=== PATIENT | female | born 1970 | race Caucasian/White ===

== ENCOUNTER → 2017-08-19 | Outpatient (CLI) | payer MEDICAID ==
[~2017-08-19] MED LIST: ALPRAZOLAM; AMOXICILLIN 50500 MG PO; CEFTIN250 M1 PO; CEFTIN500 MG PO; CEPHALEXIN500 M1 PO; CIPRO; CIPRO 500MG TA500 MG PO; FLUOXETINE; IBUPROFEN; KEFLEX500 MG PO; LORTAB 5/500 501 TAB PO; MACROBID100 MG PO; METRONIDAZOLE500 MG PO; MVI; NAPROSYN500 MG PO; NITROFURANTOIN; NO HOME MEDICATIONS; NORCO 325 MG-51 TAB PO; PERCOCET; PERCOCET 325 MG1 TA2 PO; PRENATAL VITAMI1 TA5 PO
[2017-08-19 13:03] LABS: HEMOGLOBIN 10.9 g/dl (12.5-16.0)
[2017-08-19 13:05] LABS: HEMATOCRIT 35.2 % (37.0-47.0)
== END ==
LOC: COL.LAB 12:05
PROVIDERS: Orthopaedic Surgery
DX: Z01.812 Encounter for preprocedural laboratory examination (principal); D64.9 Anemia, unspecified; M75.102 Unspecified rotator cuff tear or rupture of left shoulder, not specified as traumatic

== ENCOUNTER → 2017-10-06 | Outpatient (CLI) | payer MEDICAID | LOC: ZCOL.LAB 16:27 | DX: M25.511 Pain in right shoulder (principal) ==

== ENCOUNTER → 2017-10-08 | Outpatient (REF) | LOC: ZLAB.WCH 16:12 | DX: Z01.89 Encounter for other specified special examinations (principal) ==

== ENCOUNTER → 2017-10-11 | Outpatient (REF) | LOC: ZLAB.WCH 18:09 | DX: Z01.89 Encounter for other specified special examinations (principal) ==

== ENCOUNTER → 2017-11-12 | Outpatient (CLI) | payer MEDICAID | LOC: ZCOL.LAB 13:59 | DX: S46.191D Other injury of muscle, fascia and tendon of long head of biceps, right arm, subsequent encounter (principal) ==

== ENCOUNTER 2017-11-19 10:51 | Outpatient (RCR) | payer MEDICAID ==
[~2017-11-19] VITALS: Ht 165.1 cm; Wt 63.0 kg
[~2017-11-19 10:51] MED LIST changes: -ABILIFY5 MG PO; -MACROBID 1100 MG/CAP PO; -METROCREAM CREA45 GM TP; -MONODOX100 PO; -ROXICODONE 55 MG/TAB PO; -TINDAMAX 500MG500 M1 PO; -WELLBUTRIN XL300 M1 PO; -ZOLOFT 25MG25 MG PO
[2017-11-19] MEDS ORDERED: ABILIFY5 MG PO (11:23)
[2017-11-19] MEDS ORDERED: WELLBUTRIN XL300 M1 PO (11:23)
[2017-11-19] MEDS ORDERED: ZOLOFT 25MG25 MG PO (11:25)
[2017-11-19] MEDS ORDERED: MACROBID 1100 MG/CAP PO (11:25)
[2017-11-19] MEDS ORDERED: TINDAMAX 500MG500 M1 PO (11:40)
[2017-11-19 11:59] VITALS: BP 112/73; PULSE 72; TEMP 97.6
[2017-11-19] MEDS ORDERED: ROXICODONE 55 MG/TAB PO (12:15)
[2017-11-19] MEDS ORDERED: METROCREAM CREA45 GM TP (12:16)
[2017-11-19] MEDS ORDERED: MONODOX100 PO (12:17)
== END 2017-11-19 13:52 | disposition home or self-care (01) ==
LOC: EUO 10:51
DX: Z45.2 Encounter for adjustment and management of vascular access device (principal); Z95.9 Presence of cardiac and vascular implant and graft, unspecified; M01.X11 Direct infection of right shoulder in infectious and parasitic diseases classified elsewhere; B99.9 Unspecified infectious disease
CPT/HCPCS: C1751; C1894; J3370; J7050

== ENCOUNTER → 2017-11-19 | Outpatient (REF) ==
[~2017-11-19] MED LIST changes: +ABILIFY5 MG PO; +MACROBID 1100 MG/CAP PO; +METROCREAM CREA45 GM TP; +MONODOX100 PO; +ROXICODONE 55 MG/TAB PO; +TINDAMAX 500MG500 M1 PO; +WELLBUTRIN XL300 M1 PO; +ZOLOFT 25MG25 MG PO
[2017-11-19 06:16] LABS: CALCIUM 9.1 mg/dL (8.4-10.2); CREATININE, serum 0.53 mg/dL (0.52-1.25); POTASSIUM 3.9 mmol/L (3.4-5.0)
== END ==
LOC: ZMSC 05:47
PROVIDERS: Orthopaedic Surgery
DX: Z01.89 Encounter for other specified special examinations (principal)

== ENCOUNTER → 2018-03-29 | Outpatient (REF) ==
[~2018-03-29] MED LIST changes: +ABILIFY5 MG PO; +MACROBID 1100 MG/CAP PO; +METROCREAM CREA45 GM TP; +MONODOX100 PO; +ROXICODONE 55 MG/TAB PO; +TINDAMAX 500MG500 M1 PO; +WELLBUTRIN XL300 M1 PO; +ZOLOFT 25MG25 MG PO
== END ==
LOC: ZLAB.WCH 08:50
DX: Z01.89 Encounter for other specified special examinations (principal)

== ENCOUNTER 2018-09-24 18:45 | Emergency (ER) | payer MEDICAID ==
[~2018-09-24] VITALS: Ht 165.1 cm; Wt 56.8 kg
[2018-09-24 18:48] VITALS: TEMP 97.8
[2018-09-24] MEDS ORDERED: AMOXICILLIN/CLA1 TA1 PO (19:08)
[2018-09-24 19:33] LABS: BASO % 0.5 % (0.0-2.0); EOS # 0.2 (0.0-0.7); EOS % 3.4 % (0-4.0); GRAN # 3.1 (1.4-6.5); LYMPH # 2.2 (1.2-3.4); LYMPH % 36.5 % (20.0-51.0); MEAN CELL VOLUME 86 fl (80.0-100.0); MEAN CORPUSCULAR HGB CONC 30 g/dl (33.0-37.0); MEAN PLATELET VOLUME 9.8 fl (7.4-10.4); MONO # 0.5 (0.1-0.6); MONO % 8.4 % (1.7-9.3); PLATELET COUNT 495 K/mm3 (130-400); RED BLOOD COUNT 3.41 M/mm3 (4.10-5.30); REDCELL DISTRIBUTION WIDTH-CV 20.8 % (11.5-14.5)
[2018-09-24 19:45] LABS: HEMATOCRIT 29.3 % (37.0-47.0); HEMOGLOBIN 8.8 g/dl (12.5-16.0); MEAN CORPUSCULAR HEMOGLOBIN 26 pg (27.0-31.0)
[2018-09-24 19:47] LABS: ALANINE AMINOTRANSFERASE 36 U/L (9-52); ALKALINE PHOSPHATASE 71 U/L (50-136); ANION GAP 7 mmol/L (7-16); AST,SGOT 42 U/L (15-37); BILIRUBIN,TOTAL 0.2 mg/dL (0.0-1.0); BLOOD UREA NITROGEN 9 mg/dL (7-17); CALCIUM 8.5 mg/dL (8.4-10.2); CARBON DIOXIDE 24 mmol/L (22-30); CHLORIDE 111 mmol/L (98-107); CREATININE, serum 0.55 (0.52-1.25); GLUCOSE 101 mg/dL (74-106); POTASSIUM 3.8 mmol/L (3.4-5.0); SODIUM 142 mmol/L (137-145); TOTAL PROTEIN 6.5 gm/dL (6.4-8.2)
[2018-09-24 20:01] LABS: C-REACTIVE PROTEIN < 0.5 mg/dL (0.0-0.9)
[2018-09-24 20:02] LABS: ERYTHROCYTE SEDIMENTATION RATE 7 mm/hr (0-20)
[2018-09-24 20:53] VITALS: BP 119/67; PULSE 76
== END 2018-09-24 20:59 | disposition home or self-care (01) ==
LOC: COL.ER 18:45
PROVIDERS: Emergency Medicine
DX: M79.89 Other specified soft tissue disorders (principal); F43.10 Post-traumatic stress disorder, unspecified; F41.9 Anxiety disorder, unspecified; F32.9 Major depressive disorder, single episode, unspecified; F17.210 Nicotine dependence, cigarettes, uncomplicated; Z86.19 Personal history of other infectious and parasitic diseases

== ENCOUNTER 2019-03-08 16:02 | Emergency (ER) | payer MEDICAID ==
[~2019-03-08] VITALS: Ht 165.1 cm; Wt 56.8 kg
[~2019-03-08 16:02] MED LIST changes: +AMOXICILLIN/CLA1 TA1 PO
[2019-03-08 16:30] VITALS: BP 129/74
[2019-03-08] MEDS ORDERED: ATARAX 10MG10 MG/TAB (16:57)
[2019-03-08 19:06] VITALS: PULSE 79; TEMP 97.6
== END 2019-03-08 19:06 | disposition home or self-care (01) ==
LOC: COL.ER 16:02
DX: F32.9 Major depressive disorder, single episode, unspecified (principal); F43.10 Post-traumatic stress disorder, unspecified

== ENCOUNTER 2020-05-17 00:06 | Observation (INO) | payer MEDICAID ==
[2020-05-17] VITALS (7 sets, daily range): BP systolic 102–119; BP diastolic 56–72; PULSE 71–94; TEMP 97.1–98.3
[~2020-05-17] VITALS: Ht 165.1 cm; Wt 59.1 kg
[~2020-05-17 00:06] MED LIST changes: +ATARAX 10MG10 MG/TAB; +DOXYCYCLINE 10100 MG PO; +SYNTHROID0.05 MG/TA PO
[2020-05-17 00:31] LABS: BASO % 0.1 % (0.0-2.0); EOS # 0.1 (0.0-0.7); GRAN % 78.4 % (42.2-75.2); HEMATOCRIT 37.4 % (37.0-47.0); HEMOGLOBIN 12.1 g/dl (12.5-16.0); LYMPH # 1.3 (1.2-3.4); LYMPH % 14.6 % (20.0-51.0); MEAN CELL VOLUME 91 fl (80.0-100.0); MEAN CORPUSCULAR HEMOGLOBIN 30 pg (27.0-31.0); MEAN CORPUSCULAR HGB CONC 32 g/dl (33.0-37.0); MEAN PLATELET VOLUME 10.2 fl (7.4-10.4); MONO # 0.5 (0.1-0.6); MONO % 5.5 % (1.7-9.3); PLATELET COUNT 220 K/mm3 (130-400); RED BLOOD COUNT 4.09 M/mm3 (4.10-5.30); REDCELL DISTRIBUTION WIDTH-CV 17.8 % (11.5-14.5)
[2020-05-17 00:51] LABS: ALANINE AMINOTRANSFERASE 80 U/L (4-34); ALBUMIN 4.6 gm/dL (3.5-5.0); ALKALINE PHOSPHATASE 106 U/L (50-136); ANION GAP 12 mmol/L (7-16); AST,SGOT 81 U/L (15-37); BILIRUBIN,TOTAL 0.7 mg/dL (0.0-1.0); BLOOD UREA NITROGEN 14 mg/dL (7-17); CALCIUM 9.8 mg/dL (8.4-10.2); CARBON DIOXIDE 24 mmol/L (22-30); CHLORIDE 104 mmol/L (98-107); CREATININE, serum 0.71 (0.52-1.25); GLUCOSE 110 mg/dL (74-106); LIPASE 47 U/L (23-300); SODIUM 139 mmol/L (137-145)
[2020-05-17 01:07] LABS: TROPONIN-I < 0.012 ng/mL (0.000-0.035)
--- NOTE | 2020-05-17 02:57 | NUR ---
PATIENT ADMITTED TO ROOM 324 VIA ED CART ACCOMPANIED BY ED NURSE. IVF INFUSING WITH NO PROBLEMS.
--- NOTE | 2020-05-17 02:59 | NUR ---
PATIENT STATES SHE SEES ANA DOWNEY WITH [facility], [facility], FOR HEP C/LIVER TREATMENT. HAS KNOWN HX OF GALL STONE, NO GALL BLADDER SURGERY REPORTED BY PATIENT. WAS HOSP, MRSA D/T CELLULITIS TO RUE DUE TO IV DRUG USE. REPORTS PRIMARY CARE DR JOHN THOMSON, [facility] WITH LAST OFFICE VISIT 1-2 YEARS AGO. CURRENTLY LIVES IN SNF IN [facility] UNTIL TODAY.
[2020-05-17] MEDS ORDERED: SYNTHROID0.088 MG/T PO (03:29)
--- NOTE | 2020-05-17 06:12 | NUR ---
INFORMED DR VÁSQUEZ OF PATIENT'S ADMIT TO UNIT AND ROOM # WITH NO ADDITIONAL ORDER GIVEN AT END OF CALL.
[2020-05-17 06:34] LABS: COLLECTION METHOD CLEAN CATCH
[2020-05-17 06:54] LABS: MUCOUS Present /lpf; PH 6 (5-8); SQUAMOUS EPITHELIAL 0-2 /hpf; URINE APPEARANCE Hazy; URINE BACTERIA None Seen /hpf; URINE BILIRUBIN Negative (NEGATIVE); URINE BLOOD Negative (NEGATIVE); URINE COLOR Yellow; URINE GLUCOSE Negative (NEGATIVE); URINE KETONE Negative (NEGATIVE); URINE LEUKOCYTE ESTERASE Negative (NEGATIVE); URINE NITRATE Negative (NEGATIVE); URINE PROTEIN(semi-quant) Negative (NEGATIVE); URINE RBC 0-2 /hpf
--- NOTE | 2020-05-17 07:35 | NUR ---
CHANGE OF SHIFT REPORT GIVEN TO DAY SHIFT NURSE, BECKIE GARZA, A AIRCRAFT MAINTENANCE INSTRUCTOR PRESENT WAS ALSO PRESENT.
--- NOTE | 2020-05-17 11:33 | NUR ---
DONNY met with the patient to discuss discharge plan. The patient has been staying at the [facility]. She states that she will be moving into an apartment next week. She reports independence with ADLs and does not have any DME. The patient's primary care provier is Little Rodriguez PA-C in [place] and she receives her medications from [facility]. She reports no difficulties obtaining her meds. The patient does not have a DPOA-HC and she was not interested in completing one while here. The patient has four children over the age of 18: Varun (ph#[phone]), Arabella, Christopher, and Nicholas. Her two younger children are thirteen and fourteen-years old. She states that they are with her mother in [place] right now. The patient plans to return back to the [facility] to get her belongings and check out today. She states that she will be staying with her mother this weekend. Her son's girlfriend will be taking her to her mothers. The patient states that she does not have a ride to [place] though today. Her son's girlfriend does not get off work until 1730. The patient would like to utilize her Medicaid transportation services, once discharge orders are in. DONNY updated the patient's RN of this. SW to continue to follow.
--- NOTE | 2020-05-17 11:48 | NUR ---
First visit from the cook cold meat. Manager Oracle Database prayed for patient while standing outside of their door.
--- NOTE | 2020-05-17 14:23 | NUR ---
PATIENT GIVEN PRN IV ZOFRAN FOR NAUSEA AT THIS TIME. WILL CONTINUE TO MONITOR.
--- NOTE | 2020-05-17 15:30 | NUR ---
The patient's RN notified SW that she will not be discharging today.
--- NOTE | 2020-05-17 15:36 | NUR ---
NOTIFIED THAT THE PATIENT HAS DEVELOPED NAUSEA AND ABDOMINAL PAIN AFTER EATING A GENERAL DIET THIS AFTERNOON. TORB FOR PATIENT TO STAY OVERNIGHT, BACK DIET TO CLEAR LIQUIDS FOR DINNER, DRAW A CBC& BMP IN AM FROM TO THIS NURSE.
--- NOTE | 2020-05-17 19:00 | NUR ---
PATIENT IS REPORTING THAT HER NAUSEA AND ABDOMINAL PAIN HAVE IMPROVED AND SHE WOULD LIKE TO EAT "REAL" FOOD FOR DINNER. PATIENT EDUCATED OF SBO AND CLEAR LIQUID DIET. REPORT GIVEN TO GREG PADRON.
--- NOTE | 2020-05-17 21:30 | NUR ---
PT REPORTS NO NAUSEA OR PAIN TO ABD. IS ALERT AND ORIENTED X4. HAS SL TO RIGHT HAND. TAKES CLEAR LIQUID TRAY WITHOUT PROBLEM. GIVEN SALTINES AND GRAHM CRACKERS AT THIS TIME. UP INDEPENDENTLY IN ROOM.
[2020-05-18 03:50] VITALS: BP 120/73; PULSE 83; TEMP 98.3
--- NOTE | 2020-05-18 06:00 | NUR ---
PT DENIES NAUSEA OR PAIN. HAS RESTED WELL.
[2020-05-18 06:59] LABS: BASO % 0.2 % (0.0-2.0); EOS # 0.1 (0.0-0.7); EOS % 3.3 % (0-4.0); GRAN # 2.1 (1.4-6.5); GRAN % 49.7 % (42.2-75.2); HEMOGLOBIN 10.2 g/dl (12.5-16.0); LYMPH # 1.7 (1.2-3.4); LYMPH % 38.8 % (20.0-51.0); MEAN CELL VOLUME 95 fl (80.0-100.0); MEAN CORPUSCULAR HEMOGLOBIN 30 pg (27.0-31.0); MEAN CORPUSCULAR HGB CONC 31 g/dl (33.0-37.0); MEAN PLATELET VOLUME 10.3 fl (7.4-10.4); MONO # 0.3 (0.1-0.6); MONO % 7.8 % (1.7-9.3); PLATELET COUNT 166 K/mm3 (130-400); RED BLOOD COUNT 3.46 M/mm3 (4.10-5.30); REDCELL DISTRIBUTION WIDTH-CV 18.1 % (11.5-14.5)
[2020-05-18 07:06] LABS: CALCIUM 8.6 mg/dL (8.4-10.2); CREATININE, serum 0.63 (0.52-1.25); POTASSIUM 3.9 mmol/L (3.4-5.0)
[2020-05-18 07:15] VITALS: BP 122/75; PULSE 73; TEMP 97.9
--- NOTE | 2020-05-18 09:54 | NUR ---
Patient tolerated breakfast, denies pain & nausea. Wanting to discharge today by noon. made aware & progressed diet.
[2020-05-18 11:24] VITALS: BP 114/64; PULSE 76; TEMP 98.9
--- NOTE | 2020-05-18 12:51 | NUR ---
Patient ready for discharge. rounded. She tolerated lunch & breakfast. All discharge paperwork reviewed. Int DC. [facility] to take [facility] to homeless [facility]term.
== END 2020-05-18 12:54 | disposition home or self-care (01) ==
LOC: COL.ER 00:06 → SURG 02:01
PROVIDERS: Emergency Medicine; ADMIT Surgery
DX: R10.9 Unspecified abdominal pain (principal); R11.2 Nausea with vomiting, unspecified; B19.20 Unspecified viral hepatitis C without hepatic coma; Z87.891 Personal history of nicotine dependence
CPT/HCPCS: G0378; J2270; J2405; J3480; Q9967

== ENCOUNTER 2020-08-19 12:37 | Emergency (ER) | payer MEDICAID ==
[~2020-08-19 12:37] MED LIST changes: +SYNTHROID0.088 MG/T PO
[2020-08-19 15:11] LABS: COLLECTION METHOD CLEAN CATCH
[2020-08-19 15:19] LABS: MUCOUS Present /lpf; PH 6 (5-8); SQUAMOUS EPITHELIAL 0-2 /hpf; URINE APPEARANCE Hazy; URINE BACTERIA Moderate /hpf; URINE BILIRUBIN Negative (NEGATIVE); URINE BLOOD 1+ (NEGATIVE); URINE COLOR Yellow; URINE GLUCOSE Negative (NEGATIVE); URINE KETONE Negative (NEGATIVE); URINE LEUKOCYTE ESTERASE 2+ (NEGATIVE); URINE NITRATE Positive (NEGATIVE); URINE PROTEIN(semi-quant) Negative (NEGATIVE); URINE RBC None Seen /hpf; URINE UROBILINOGEN >=4.0 mg/dL (NEGATIVE)
[2020-08-19 15:22] LABS: BASO % 0.2 % (0.0-2.0); EOS % 0.2 % (0-4.0); GRAN # 3.3 (1.4-6.5); GRAN % 63.4 % (42.2-75.2); HEMATOCRIT 30.8 % (37.0-47.0); HEMOGLOBIN 9.8 g/dl (12.5-16.0); LYMPH # 1.4 (1.2-3.4); LYMPH % 27.2 % (20.0-51.0); MEAN CELL VOLUME 97 fl (80.0-100.0); MEAN CORPUSCULAR HEMOGLOBIN 31 pg (27.0-31.0); MEAN CORPUSCULAR HGB CONC 32 g/dl (33.0-37.0); MONO # 0.4 (0.1-0.6); MONO % 8.4 % (1.7-9.3); PLATELET COUNT 222 K/mm3 (130-400); RED BLOOD COUNT 3.18 M/mm3 (4.10-5.30); REDCELL DISTRIBUTION WIDTH-CV 18.9 % (11.5-14.5)
[2020-08-19 15:25] LABS: ALBUMIN 3.7 gm/dL (3.5-5.0); BILIRUBIN,TOTAL 0.4 mg/dL (0.0-1.0); C-REACTIVE PROTEIN 1.5 mg/dL (0.0-0.9); CALCIUM 8.5 mg/dL (8.4-10.2); CREATININE, serum 0.48 (0.52-1.25); POTASSIUM 3.5 mmol/L (3.4-5.0); TOTAL PROTEIN 7.8 gm/dL (6.4-8.2)
[2020-08-19] MEDS ORDERED: OMNICEF 300MG300 MG PO (15:48)
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
[2020-08-19 18:45] VITALS: BP 121/78; PULSE 97; TEMP 97.3
== END 2020-08-19 18:45 | disposition home or self-care (01) ==
LOC: COL.ER 12:37
PROVIDERS: Family Medicine
DX: N39.0 Urinary tract infection, site not specified (principal); E86.0 Dehydration; F17.210 Nicotine dependence, cigarettes, uncomplicated; F17.290 Nicotine dependence, other tobacco product, uncomplicated; Z88.2 Allergy status to sulfonamides
CPT/HCPCS: J0696; J7030

== ENCOUNTER 2020-11-09 19:00 | Emergency (ER) | payer MEDICAID ==
[~2020-11-09] VITALS: Ht 165.1 cm; Wt 59.1 kg
[~2020-11-09 19:00] MED LIST changes: +OMNICEF 300MG300 MG PO
[2020-11-09 19:03] VITALS: TEMP 98.6
[2020-11-09 19:53] LABS: BASO % 0.2 % (0.0-2.0); EOS % 0.3 % (0-4.0); GRAN # 3.6 (1.4-6.5); GRAN % 58.4 % (42.2-75.2); LYMPH # 2.2 (1.2-3.4); LYMPH % 35.9 % (20.0-51.0); MEAN CELL VOLUME 106 fl (80.0-100.0); MEAN CORPUSCULAR HGB CONC 33 g/dl (33.0-37.0); MONO # 0.3 (0.1-0.6); MONO % 4.2 % (1.7-9.3); PLATELET COUNT 133 K/mm3 (130-400); RED BLOOD COUNT 2.58 M/mm3 (4.10-5.30); REDCELL DISTRIBUTION WIDTH-CV 17.9 % (11.5-14.5)
[2020-11-09 19:57] LABS: HEMATOCRIT 27.3 % (37.0-47.0); HEMOGLOBIN 8.9 g/dl (12.5-16.0); MEAN CORPUSCULAR HEMOGLOBIN 34 pg (27.0-31.0)
[2020-11-09 20:05] LABS: ALBUMIN 3.7 gm/dL (3.5-5.0); BILIRUBIN,TOTAL 0.7 mg/dL (0.0-1.0); CREATININE, serum 0.61 (0.52-1.25); POTASSIUM 3.3 mmol/L (3.4-5.0)
[2020-11-09 20:31] LABS: COLLECTION METHOD CLEAN CATCH
[2020-11-09 20:37] LABS: MUCOUS Present /lpf; PH 7 (5-8); URINE APPEARANCE Hazy; URINE BACTERIA Many /hpf; URINE BILIRUBIN Negative (NEGATIVE); URINE BLOOD Negative (NEGATIVE); URINE COLOR Yellow; URINE GLUCOSE Negative (NEGATIVE); URINE KETONE Negative (NEGATIVE); URINE LEUKOCYTE ESTERASE Negative (NEGATIVE); URINE NITRATE Positive (NEGATIVE); URINE PROTEIN(semi-quant) Negative (NEGATIVE); URINE RBC 0-2 /hpf
[2020-11-09] MEDS ORDERED: CEFTIN500 MG PO (21:17)
[2020-11-09 21:26] VITALS: BP 148/70; PULSE 80
== END 2020-11-09 21:26 | disposition home or self-care (01) ==
LOC: COL.ER 19:00
PROVIDERS: Nurse Practitioner
DX: N39.0 Urinary tract infection, site not specified (principal); E86.0 Dehydration; X30.XXXA Exposure to excessive natural heat, initial encounter
CPT/HCPCS: J7030

== ENCOUNTER 2021-01-28 17:10 | Emergency (ER) | payer MEDICAID ==
[~2021-01-28] VITALS: Ht 165.1 cm; Wt 59.1 kg
[2021-01-28 18:01] VITALS: TEMP 98
[2021-01-28 21:11] LABS: BASO % 0.2 % (0.0-2.0); EOS # 0.2 K/mm3 (0.0-0.7); EOS % 3.9 % (0-4.0); GRAN # 2.3 K/mm3 (1.4-6.5); LYMPH # 1.5 K/mm3 (1.2-3.4); LYMPH % 35.6 % (20.0-51.0); MEAN CELL VOLUME 114 fl (80.0-100.0); MEAN CORPUSCULAR HGB CONC 36 g/dl (33.0-37.0); MEAN PLATELET VOLUME 11.2 fl (7.4-10.4); MONO # 0.2 K/mm3 (0.1-0.6); MONO % 3.6 % (1.7-9.3); PLATELET COUNT 122 K/mm3 (130-400); RED BLOOD COUNT 1.92 M/mm3 (4.10-5.30); REDCELL DISTRIBUTION WIDTH-CV 22.7 % (11.5-14.5)
[2021-01-28 21:12] LABS: HEMATOCRIT 21.9 % (37.0-47.0); HEMOGLOBIN 7.8 g/dl (12.5-16.0); MEAN CORPUSCULAR HEMOGLOBIN 41 pg (27.0-31.0)
[2021-01-28 21:29] LABS: ALBUMIN 4.1 gm/dL (3.5-5.0); BILIRUBIN,TOTAL 1.5 mg/dL (0.2-1.2); CREATININE, serum 0.79 mg/dL (0.57-1.11); POTASSIUM 3.8 mmol/L (3.5-4.5); TOTAL PROTEIN 7.7 gm/dL (6.2-8.1)
[2021-01-28 22:51] VITALS: BP 144/78; PULSE 76
== END 2021-01-28 22:51 | disposition home or self-care (01) ==
LOC: COL.ER 17:10
PROVIDERS: Nurse Practitioner
DX: R10.10 Upper abdominal pain, unspecified (principal); F17.210 Nicotine dependence, cigarettes, uncomplicated

== ENCOUNTER 2021-02-28 02:01 | Emergency (ER) | payer MEDICAID ==
[~2021-02-28] VITALS: Ht 167.6 cm; Wt 50.0 kg
[2021-02-28 02:10] VITALS: TEMP 98.6
[2021-02-28 02:10] LABS: COLLECTION METHOD CLEAN CATCH
[2021-02-28 02:19] LABS: MUCOUS Present (NOT PRESENT); PH 6 (5-8); URINE APPEARANCE Cloudy (CLEAR/HAZY); URINE BACTERIA Moderate /hpf (NONE SEEN); URINE BILIRUBIN Negative (NEGATIVE); URINE BLOOD 1+ (NEGATIVE); URINE COLOR Yellow (YELLOW); URINE GLUCOSE Negative (NEGATIVE); URINE KETONE Negative (NEGATIVE); URINE LEUKOCYTE ESTERASE 3+ (NEGATIVE); URINE NITRATE Negative (NEGATIVE); URINE PROTEIN(semi-quant) 2+ (NEGATIVE); URINE UROBILINOGEN >=4.0 (NEGATIVE)
[2021-02-28 02:25] LABS: TRICYCLIC ANTIDEPRESS URINE NEGATIVE
[2021-02-28 02:28] LABS: BASO # 0.1 K/mm3 (0.0-0.2); BASO % 0.3 % (0.0-2.0); EOS # 0.1 K/mm3 (0.0-0.7); EOS % 0.3 % (0.0-4.0); GRAN # 11.6 K/mm3 (1.4-6.5); GRAN % 77.8 % (42.2-75.2); LYMPH # 1.9 K/mm3 (1.2-3.4); LYMPH % 12.9 % (20.0-51.0); MEAN CELL VOLUME 114 fl (80.0-100.0); MEAN CORPUSCULAR HGB CONC 35 g/dl (33.0-37.0); MEAN PLATELET VOLUME 10.6 fl (7.4-10.4); MONO # 1.2 K/mm3 (0.1-0.6); PLATELET COUNT 250 K/mm3 (130-400); RED BLOOD COUNT 2.13 M/mm3 (4.10-5.30); REDCELL DISTRIBUTION WIDTH-CV 16.3 % (11.5-14.5)
[2021-02-28 02:29] LABS: HEMATOCRIT 24.2 % (37.0-47.0); HEMOGLOBIN 8.4 g/dl (12.5-16.0); MEAN CORPUSCULAR HEMOGLOBIN 39 pg (27-31)
[2021-02-28 02:46] LABS: ALANINE AMINOTRANSFERASE 55 U/L (0-55); ALBUMIN 3.5 gm/dL (3.5-5.0); ALKALINE PHOSPHATASE 72 U/L (40-150); ANION GAP 13 mmol/L (7-16); AST,SGOT 59 U/L (5-34); BILIRUBIN,TOTAL 1.2 mg/dL (0.2-1.2); BLOOD UREA NITROGEN 29 mg/dL (10-20); CALCIUM 8.4 mg/dL (8.4-10.2); CARBON DIOXIDE 17 mmol/L (22-29); CHLORIDE 105 mmol/L (98-107); CREATININE, serum 1.23 mg/dL (0.57-1.11); GLUCOSE 118 mg/dL (70-99); POTASSIUM 3.3 mmol/L (3.5-4.5); SODIUM 135 mmol/L (136-145); TOTAL PROTEIN 7.5 gm/dL (6.2-8.1)
[2021-02-28 02:54] LABS: ACETAMINOPHEN < 1.0 ug/mL (10-30); ALCOHOL(ethanol),MEDICAL < 10 mg/dL (0-10); SALICYLATE < 5.0 mg/dL (15.0-30.0)
[2021-02-28] MEDS ORDERED: CEFTIN500 MG PO (03:17)
[2021-02-28 03:35] VITALS: BP 114/78; PULSE 102
== END 2021-02-28 03:35 | disposition home or self-care (01) ==
LOC: COL.ER 02:01
PROVIDERS: Emergency Medicine
DX: N39.0 Urinary tract infection, site not specified (principal); F15.10 Other stimulant abuse, uncomplicated

== ENCOUNTER 2021-05-15 10:39 | Emergency (ER) | payer MEDICAID ==
[2021-05-15] VITALS (7 sets, daily range): BP systolic 103–127; BP diastolic 70–82; PULSE 76–87; TEMP 97–98
[~2021-05-15] VITALS: Ht 165.1 cm; Wt 59.1 kg
[2021-05-15 11:32] LABS: MEAN CELL VOLUME 105 fl (80.0-100.0); MEAN CORPUSCULAR HGB CONC 33 g/dl (33.0-37.0); PLATELET COUNT 57 K/mm3 (130-400); RED BLOOD COUNT 2.06 M/mm3 (4.10-5.30); REDCELL DISTRIBUTION WIDTH-CV 19.8 % (11.5-14.5)
[2021-05-15 11:36] LABS: HEMATOCRIT 21.6 % (37.0-47.0); HEMOGLOBIN 7.1 g/dl (12.5-16.0); MEAN CORPUSCULAR HEMOGLOBIN 34 pg (27-31)
[2021-05-15 11:49] LABS: ALANINE AMINOTRANSFERASE 85 U/L (0-55); ALBUMIN 4.1 gm/dL (3.5-5.0); ALKALINE PHOSPHATASE 64 U/L (40-150); ANION GAP 10 mmol/L (7-16); AST,SGOT 88 U/L (5-34); BILIRUBIN,TOTAL 0.8 mg/dL (0.2-1.2); BLOOD UREA NITROGEN 18 mg/dL (10-20); CARBON DIOXIDE 22 mmol/L (22-29); CHLORIDE 107 mmol/L (98-107); CREATININE, serum 0.77 mg/dL (0.57-1.11); GLUCOSE 94 mg/dL (70-99); POTASSIUM 4.3 mmol/L (3.5-4.5); SODIUM 139 mmol/L (136-145); TOTAL PROTEIN 7.9 gm/dL (6.2-8.1)
[2021-05-15 12:03] LABS: TSH w REFLEX 9.542 uIU/mL (0.350-4.940)
[2021-05-15 12:04] LABS: TROPONIN-I < 0.010 ng/mL (0.00-0.033)
[2021-05-15 12:15] LABS: BASOPHIL 1 % (0-2); EOSINOPHIL 3 % (0-4); LYMPHOCYTE 44 % (20.0-51.0); NEUTROPHILS 52 % (42.0-75.2); PLATELET ESTIMATE DECREASED (NORMAL)
[2021-05-15 12:16] LABS: ANISOCYTOSIS 1+; OVALOCYTES 1+; POIKILOCYTOSIS 2+; SCHISTOCYTES 1+
[2021-05-15 12:17] LABS: POLYCHROMASIA 1+; TEAR DROP CELLS 1+
[2021-05-15 14:38] LABS: COLLECTION METHOD CLEAN CATCH
[2021-05-15 14:57] LABS: MUCOUS Present (NOT PRESENT); PH 6 (5-8); URINE APPEARANCE Hazy (CLEAR/HAZY); URINE BACTERIA Rare /hpf (NONE SEEN); URINE BILIRUBIN Negative (NEGATIVE); URINE BLOOD 1+ (NEGATIVE); URINE COLOR Yellow (YELLOW); URINE GLUCOSE Negative (NEGATIVE); URINE KETONE Negative (NEGATIVE); URINE LEUKOCYTE ESTERASE 2+ (NEGATIVE); URINE NITRATE Negative (NEGATIVE); URINE PROTEIN(semi-quant) Negative (NEGATIVE); URINE RBC 0-2 /hpf (0-2); URINE UROBILINOGEN Negative (NEGATIVE)
[2021-05-15 15:12] LABS: TRICYCLIC ANTIDEPRESS URINE NEGATIVE
[2021-05-16 07:58] LABS: PATHOLOGY DIFF REVIEW OK
== END 2021-05-15 18:30 | disposition home or self-care (01) ==
LOC: COL.ER 10:39
PROVIDERS: Physician Assistant
DX: R05.9 Cough, unspecified (principal)
CPT/HCPCS: J2405; J7030; P9016

== ENCOUNTER 2021-05-23 17:55 | Emergency (ER) | payer MEDICAID ==
[~2021-05-23] VITALS: Ht 165.1 cm; Wt 59.1 kg
[2021-05-23 18:11] VITALS: TEMP 97.2
[2021-05-23 18:36] LABS: COLLECTION METHOD CLEAN CATCH
[2021-05-23 18:50] LABS: MUCOUS Present (NOT PRESENT); PH 5 (5-8); SQUAMOUS EPITHELIAL None Seen /hpf (0-10); URINE APPEARANCE Hazy (CLEAR/HAZY); URINE BACTERIA Occasional /hpf (NONE SEEN); URINE BILIRUBIN Negative (NEGATIVE); URINE BLOOD Negative (NEGATIVE); URINE COLOR Yellow (YELLOW); URINE GLUCOSE Negative (NEGATIVE); URINE KETONE Trace (NEGATIVE); URINE LEUKOCYTE ESTERASE Trace (NEGATIVE); URINE NITRATE Negative (NEGATIVE); URINE PROTEIN(semi-quant) Negative (NEGATIVE); URINE RBC None Seen /hpf (0-2); URINE UROBILINOGEN >=4.0 (NEGATIVE)
[2021-05-23 19:30] LABS: TRICYCLIC ANTIDEPRESS URINE NEGATIVE
[2021-05-23 20:32] LABS: HEMATOCRIT 21.3 % (37.0-47.0); HEMOGLOBIN 7.3 g/dl (12.5-16.0); MEAN CELL VOLUME 101 fl (80.0-100.0); MEAN CORPUSCULAR HEMOGLOBIN 35 pg (27-31); MEAN CORPUSCULAR HGB CONC 34 g/dl (33.0-37.0); PLATELET COUNT 54 K/mm3 (130-400); RED BLOOD COUNT 2.11 M/mm3 (4.10-5.30); REDCELL DISTRIBUTION WIDTH-CV 19.1 % (11.5-14.5)
[2021-05-23 20:49] LABS: ALBUMIN 4.2 gm/dL (3.5-5.0); BILIRUBIN,TOTAL 0.8 mg/dL (0.2-1.2); CALCIUM 8.7 mg/dL (8.4-10.2); CREATININE, serum 0.8 mg/dL (0.57-1.11); POTASSIUM 3.9 mmol/L (3.5-4.5); TOTAL PROTEIN 7.9 gm/dL (6.2-8.1)
[2021-05-23] MEDS ORDERED: CEFTIN 250250 MG/TAB PO (21:12)
[2021-05-23 21:22] LABS: BAND 2 % (0-10); EOSINOPHIL 2 % (0-4); LYMPHOCYTE 64 % (20.0-51.0); NEUTROPHILS 32 % (42.0-75.2); PLATELET ESTIMATE DECREASED (NORMAL)
[2021-05-23 21:23] LABS: TEAR DROP CELLS 1+
[2021-05-23 21:25] LABS: ANISOCYTOSIS 2+
[2021-05-23 21:28] VITALS: BP 142/80; PULSE 86
== END 2021-05-23 21:28 | disposition home or self-care (01) ==
LOC: COL.ER 17:55
PROVIDERS: Nurse Practitioner
DX: N39.0 Urinary tract infection, site not specified (principal); D64.9 Anemia, unspecified; N89.8 Other specified noninflammatory disorders of vagina; F17.210 Nicotine dependence, cigarettes, uncomplicated; Z88.2 Allergy status to sulfonamides

== ENCOUNTER 2021-05-27 09:54 | Inpatient (IN) | payer MEDICAID ==
[~2021-05-27] VITALS: Ht 165.1 cm; Wt 59.0 kg
[~2021-05-27 09:54] MED LIST changes: +CEFTIN 250250 MG/TAB PO
[2021-05-27 10:22] LABS: MEAN CELL VOLUME 101 fl (80.0-100.0); MEAN CORPUSCULAR HGB CONC 33 g/dl (33.0-37.0); MEAN PLATELET VOLUME 12.1 fl (7.4-10.4); PLATELET COUNT 77 K/mm3 (130-400); RED BLOOD COUNT 1.97 M/mm3 (4.10-5.30)
[2021-05-27 10:26] LABS: COLLECTION METHOD CLEAN CATCH
[2021-05-27 10:32] LABS: HEMATOCRIT 19.8 % (37.0-47.0); MEAN CORPUSCULAR HEMOGLOBIN 34 pg (27-31)
[2021-05-27 10:34] LABS: HEMOGLOBIN 6.6 g/dl (12.5-16.0)
[2021-05-27 10:38] LABS: ALANINE AMINOTRANSFERASE 65 U/L (0-55); ALBUMIN 4.1 gm/dL (3.5-5.0); ALKALINE PHOSPHATASE 60 U/L (40-150); ANION GAP 9 mmol/L (7-16); AST,SGOT 54 U/L (5-34); BILIRUBIN,TOTAL 0.9 mg/dL (0.2-1.2); BLOOD UREA NITROGEN 20 mg/dL (10-20); CALCIUM 8.9 mg/dL (8.4-10.2); CARBON DIOXIDE 22 mmol/L (22-29); CHLORIDE 109 mmol/L (98-107); CREATININE, serum 0.84 mg/dL (0.57-1.11); GLUCOSE 84 mg/dL (70-99); POTASSIUM 3.7 mmol/L (3.5-4.5); SODIUM 140 mmol/L (136-145); TOTAL PROTEIN 7.6 gm/dL (6.2-8.1)
[2021-05-27 10:40] LABS: MUCOUS Present (NOT PRESENT); PH 5 (5-8); SQUAMOUS EPITHELIAL 0-2 /hpf (0-10); URINE APPEARANCE Cloudy (CLEAR/HAZY); URINE BACTERIA None Seen /hpf (NONE SEEN); URINE BILIRUBIN Negative (NEGATIVE); URINE BLOOD 2+ (NEGATIVE); URINE COLOR Yellow (YELLOW); URINE GLUCOSE Negative (NEGATIVE); URINE KETONE Negative (NEGATIVE); URINE LEUKOCYTE ESTERASE 3+ (NEGATIVE); URINE NITRATE Negative (NEGATIVE); URINE PROTEIN(semi-quant) Negative (NEGATIVE)
[2021-05-27 10:45] LABS: INR 1.3 (0.8-3.0); PROTHROMBIN TIME 14.3 SECONDS (9.7-12.8)
[2021-05-27 10:46] LABS: TROPONIN-I < 0.010 ng/mL (0.00-0.033)
[2021-05-27 11:04] LABS: EOSINOPHIL 3 % (0-4); LYMPHOCYTE 41 % (20.0-51.0); NEUTROPHILS 54 % (42.0-75.2); SCHISTOCYTES 1+
[2021-05-27 11:05] LABS: HYPOCHROMIA 1+; PLATELET ESTIMATE DECREASED (NORMAL); TEAR DROP CELLS 1+
[2021-05-27 11:21] VITALS: BP 105/70; PULSE 77; TEMP 97.8
[2021-05-27 11:37] VITALS: BP 106/54; PULSE 76; TEMP 98.2
[2021-05-27 11:52] VITALS: BP 91/52; PULSE 74; TEMP 98.2
[2021-05-27 13:18] VITALS: BP 115/71; PULSE 71; TEMP 98.3
[2021-05-27 17:15] VITALS: BP 106/59; PULSE 74; TEMP 98.7
--- NOTE | 2021-05-27 18:46 | NUR ---
PATIENT RESTING IN BED, ORDERED DINNER. EDUCATED ON HOSPITAL VAPING/TOBACCO POLICY. REEDUCATED AND REMOVED E-CIG FROM PATIENT'S ROOM AT PATIENT'S REQUEST. WILL ASK ABOUT NICOTINE PATCH. PATIENT PLEASANT, INDEPENDANT IN ROOM.
--- NOTE | 2021-05-27 19:10 | NUR ---
PER PT REQUEST HER VAPE HAS BEEN TAKEN OUT OF HER POSESSION AND PLACED IN HER MEDICATION BIN IN THE MED ROOM.
[2021-05-27 20:12] VITALS: BP 115/50; PULSE 79; TEMP 98.2
[2021-05-27 21:25] LABS: HEMOGLOBIN 7.9 g/dl (12.5-16.0)
--- NOTE | 2021-05-27 21:54 | NUR ---
1956 - PT REQUESTING SOMETHING FOR ANXIETY TO HELP HER SLEEP AND A NICOTINE PATCH. NOTIFIED [facility] THRASHER WHO IS TO PUT IN ORDERS FOR BOTH. WILL CONTINUE TO MONITOR PT.
[2021-05-28] VITALS (7 sets, daily range): BP systolic 74–111; BP diastolic 40–65; PULSE 64–81; TEMP 97.6–98.3
[2021-05-28 06:21] LABS: MEAN CELL VOLUME 100 fl (80.0-100.0); MEAN CORPUSCULAR HGB CONC 33 g/dl (33.0-37.0); MEAN PLATELET VOLUME 10.8 fl (7.4-10.4); PLATELET COUNT 78 K/mm3 (130-400); RED BLOOD COUNT 2.42 M/mm3 (4.10-5.30); REDCELL DISTRIBUTION WIDTH-CV 19.9 % (11.5-14.5)
[2021-05-28 06:28] LABS: HEMATOCRIT 24.1 % (37.0-47.0); HEMOGLOBIN 7.9 g/dl (12.5-16.0); MEAN CORPUSCULAR HEMOGLOBIN 33 pg (27-31)
[2021-05-28 06:40] LABS: ALBUMIN 3.6 gm/dL (3.5-5.0); CALCIUM 8.7 mg/dL (8.4-10.2); CREATININE, serum 0.77 mg/dL (0.57-1.11); POTASSIUM 3.9 mmol/L (3.5-4.5)
[2021-05-28 06:57] LABS: ANISOCYTOSIS 2+; BAND 1 % (0-10); EOSINOPHIL 6 % (0-4); LYMPHOCYTE 54 % (20.0-51.0); NEUTROPHILS 36 % (42.0-75.2); PLATELET ESTIMATE NORMAL (NORMAL)
[2021-05-28 06:58] LABS: HYPOCHROMIA 1+
--- NOTE | 2021-05-28 10:49 | NUR ---
DONNY and DONNY morales met with the patient to discuss discharge plan. The patient lives in [place]. She states that her boyfriend stays with her off and on. She did not want to give his name. She reports independence with ADLs and does not have any DME. The patient's primary care provider is [facility] and she receives her medications from [facility]. The patient does not have a DPOA-HC, but she was interested in completing one while here. DONNY provided. The patient designated her daughter, Arabella Zabala (ph#[phone], [place]), as her DPOA-HC and her son, Shmuel Layne (ph#[phone], [place]), as the alternate. DONNY and DONNY Granado, witnessed the patient's signature. DONNY provided the patient with the original and some copies. DONNY morales placed a copy in the patient's chart. The patient states that she was [facility] prior to being admitted for help with her depression meds. She states that the plan was for her to go back to the [facility] upon discharge, if they still have a bed available. If they do not have a bed, she plans on returning home. DONNY contacted Lynda at [facility]. Lynda confirms that they can take the patient back, contingent on there being a bed available when the patient is ready to discharge. DONNY to continue to follow. *Disharge plan: [facility] depending on if bed available or home*
[2021-05-28 11:07] LABS: ALBUMIN 3.7 gm/dL (3.5-5.0); BILIRUBIN,DIRECT 0.5 mg/dL (0.0-0.5); TOTAL PROTEIN 7.2 gm/dL (6.2-8.1)
[2021-05-28 13:58] LABS: HIV 1/2 Antibodies Non-Reactive; HIV-1p24 Antigen Non-Reactive
--- NOTE | 2021-05-28 19:07 | NUR ---
Pt had uneventful day, she denied any pain or concerns. No SOB. Discussed POC with patient who will have a colonoscopy on Wednesday. On isolation precautions for previous history of MRSA. Call light within reach.
[2021-05-28 21:10] LABS: HEPATITIS B CORE AB,TOTAL Negative (Negative); HEPATITIS B SURFACE ANTIBODY <2.0 (()); HEPATITIS B SURFACE ANTIGEN Negative (Negative)
--- NOTE | 2021-05-28 22:10 | NUR ---
PT HAS VISITOR THIS EVENING, WHEN AIDE WENT INTO CHECK VITALS PT AND S/O APPEARED TO BE HAVING SEX. VISITOR ASKED TO LEAVE VISITING HOURS WHERE OVER. PM MEDS GIVEN. CALL LIGHT WI REACH.
[2021-05-29 03:27] VITALS: BP 80/45; PULSE 66; TEMP 97.4
[2021-05-29 04:01] VITALS: BP 99/52; PULSE 81
[2021-05-29 04:05] LABS: HEPATITIS AB (HAV) IGG INDEX 0.73 Index (<=1.00)
--- NOTE | 2021-05-29 04:15 | NUR ---
RESTED THROUGH THE NIGHT WITHOUT INCIDENT.
[2021-05-29 06:33] LABS: MEAN CELL VOLUME 97 fl (80.0-100.0); MEAN CORPUSCULAR HGB CONC 34 g/dl (33.0-37.0); MEAN PLATELET VOLUME 12.9 fl (7.4-10.4); PLATELET COUNT 78 K/mm3 (130-400); RED BLOOD COUNT 2.31 M/mm3 (4.10-5.30); REDCELL DISTRIBUTION WIDTH-CV 19.1 % (11.5-14.5)
[2021-05-29 06:34] LABS: HEMATOCRIT 22.4 % (37.0-47.0); HEMOGLOBIN 7.5 g/dl (12.5-16.0); MEAN CORPUSCULAR HEMOGLOBIN 32 pg (27-31)
[2021-05-29 06:55] LABS: ALBUMIN 3.6 gm/dL (3.5-5.0); CALCIUM 8.7 mg/dL (8.4-10.2); CREATININE, serum 0.72 mg/dL (0.57-1.11); PHOSPHOROUS 3.5 mg/dL (2.3-4.7); POTASSIUM 3.9 mmol/L (3.5-4.5)
[2021-05-29 07:06] LABS: LYMPHOCYTE 64 % (20.0-51.0); NEUTROPHILS 34 % (42.0-75.2)
[2021-05-29 07:07] LABS: HYPOCHROMIA 2+; OVALOCYTES 1+; SCHISTOCYTES 1+; TEAR DROP CELLS 2+
[2021-05-29 07:41] VITALS: BP 103/53; PULSE 75; TEMP 97.6
--- NOTE | 2021-05-29 08:50 | NUR ---
Shift assessment performed. Scheduled medications given. Patient denies any pain, discomfort, SOA, or further needs at this time. VSS. Patient A&O. Verbal phone order recieved for bone marrow biopsy labs. Orders repeated and entered. [facility] contacted regarding scheduling. Call light in reach. Contact percautions in place for MRSA.
[2021-05-29 10:35] VITALS: BP 94/55; PULSE 73; TEMP 98.3
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
[2021-05-29 17:00] VITALS: BP 99/67; PULSE 73; TEMP 98.1
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
--- NOTE | 2021-05-29 20:06 | NUR ---
PT RESTING IN BED. CALM AT THIS TIME. CONTINUED ISOLATION FOR MRSA. NO NEEDS AT THI TIME.
--- NOTE | 2021-05-29 20:08 | NUR ---
FINISHED MIRALAX AT THIS TIME.
[2021-05-29 20:35] VITALS: BP 104/59; PULSE 72; TEMP 98.2
[2021-05-30] VITALS (7 sets, daily range): BP systolic 92–118; BP diastolic 58–78; PULSE 57–76; TEMP 97.8–98
[2021-05-30 00:08] LABS: HAPTOGLOBIN <8 mg/dL (35-250)
--- NOTE | 2021-05-30 04:43 | NUR ---
PT RESTING. RELATES NO RESULTS YET FROM BOWEL PREP BUT FEELS IT GURGLING.
[2021-05-30 06:14] LABS: MEAN CELL VOLUME 99 fl (80.0-100.0); MEAN CORPUSCULAR HGB CONC 34 g/dl (33.0-37.0); MEAN PLATELET VOLUME 10.7 fl (7.4-10.4); PLATELET COUNT 71 K/mm3 (130-400); RED BLOOD COUNT 2.32 M/mm3 (4.10-5.30); REDCELL DISTRIBUTION WIDTH-CV 18.8 % (11.5-14.5)
[2021-05-30 06:16] LABS: HEMOGLOBIN 7.7 g/dl (12.5-16.0); MEAN CORPUSCULAR HEMOGLOBIN 33 pg (27-31)
[2021-05-30 06:30] LABS: ALBUMIN 3.7 gm/dL (3.5-5.0); CALCIUM 8.8 mg/dL (8.4-10.2); CREATININE, serum 0.69 mg/dL (0.57-1.11); PHOSPHOROUS 3.8 mg/dL (2.3-4.7); POTASSIUM 4.1 mmol/L (3.5-4.5)
--- NOTE | 2021-05-30 07:00 | NUR ---
Patient taken down for procedure.
[2021-05-30 07:20] LABS: ANISOCYTOSIS 2+; BAND 1 % (0-10); EOSINOPHIL 6 % (0-4); LYMPHOCYTE 66 % (20.0-51.0); NEUTROPHILS 26 % (42.0-75.2); PLATELET ESTIMATE DECREASED (NORMAL)
[2021-05-30 07:22] LABS: HYPOCHROMIA 1+
--- NOTE | 2021-05-30 10:00 | NUR ---
PATIENT'S VSS POST EGD/COLON.
[2021-05-30] MEDS ORDERED: B-121000 MCG PO (11:52)
[2021-05-30] MEDS ORDERED: SYNTHROID0.05 MG/TA PO (11:52)
[2021-05-30] MEDS ORDERED: PEPCID AC20 MG PO (11:53)
--- NOTE | 2021-05-30 13:35 | NUR ---
The clinical team is ready to discharge the patient today. DONNY contacted [facility] to inquire if they have a bed available for the patient. The [facility] staff member states that the patient can come to be assessed and then they will determine if the patient needs to be admitted or not. DONNY updated the patient. The patient would like to go to [facility] and be assessed upon discharge today. She will need transportation. DONNY provided the patient's RN with a taxi voucher. No additional needs at this time.
--- NOTE | 2021-05-30 14:56 | NUR ---
Patient deemed fit for discharge. IV DC'd, catheter intact, no signs of phlebitis. Discharge education/instructions given. Patient verbalized an understanding of the teaching. VSS. Patient A&O. Patient ambulated from the building escorted by [facility]. [facility] transporting to crisis center.
[2021-06-02 17:26] LABS: .COPPER,S 0.81 mcg/mL (())
== END 2021-05-30 14:56 | disposition home or self-care (01) | DRG 809 ==
LOC: COL.ER 09:54 → MEDICAL 10:56
PROVIDERS: Emergency Medicine; Internal Medicine; Internal Medicine Gastroenterology; Pathology Anatomic Pathology & Clinical Pathology; Student in an Organized Health Care Education/Training Program; ADMIT Internal Medicine
PROC: 0DB68ZX Excision of Stomach, Via Natural or Artificial Opening Endoscopic, Diagnostic (ICD-10-PCS; principal; 2021-05-30 13:00)
PROC: 0DBH8ZZ Excision of Cecum, Via Natural or Artificial Opening Endoscopic (ICD-10-PCS; 2021-05-30 13:00)
PROC: 07DR3ZX Extraction of Iliac Bone Marrow, Percutaneous Approach, Diagnostic (ICD-10-PCS; 2021-05-30 13:00)
DX: D61.818 Other pancytopenia (principal); N39.0 Urinary tract infection, site not specified; D50.9 Iron deficiency anemia, unspecified; D53.9 Nutritional anemia, unspecified; B19.20 Unspecified viral hepatitis C without hepatic coma; E03.9 Hypothyroidism, unspecified; E53.8 Deficiency of other specified B group vitamins; K80.20 Calculus of gallbladder without cholecystitis without obstruction; K29.70 Gastritis, unspecified, without bleeding; D12.0 Benign neoplasm of cecum; K57.30 Diverticulosis of large intestine without perforation or abscess without bleeding; B96.20 Unspecified Escherichia coli [E. coli] as the cause of diseases classified elsewhere; I07.1 Rheumatic tricuspid insufficiency
CPT/HCPCS: 87522; 99223-AI; 99233-AI; 99239; J0696; J2060; J2405; J2704; J3010; J7030; P9016

== ENCOUNTER 2021-07-05 00:16 | Emergency (ER) | payer MEDICAID ==
[~2021-07-05] VITALS: Ht 165.1 cm; Wt 60.0 kg
[~2021-07-05 00:16] MED LIST changes: +B-121000 MCG PO; +PEPCID AC20 MG PO
[2021-07-05 00:30] VITALS: TEMP 97.8
[2021-07-05 03:06] VITALS: BP 128/78; PULSE 76
[2021-07-06] MEDS ORDERED: CEPHALEXIN500 M1 PO (03:16)
== END 2021-07-05 03:06 | disposition home or self-care (01) ==
LOC: COL.ER 00:16
DX: T74.11XA Adult physical abuse, confirmed, initial encounter (principal); Z28.310 Unvaccinated for COVID-19

== ENCOUNTER 2021-07-06 01:35 | Emergency (ER) | payer MEDICAID ==
[~2021-07-06] VITALS: Ht 160 cm; Wt 54.5 kg
[2021-07-06 01:41] VITALS: BP 132/78; PULSE 108; TEMP 97.2
[2021-07-06 02:18] LABS: COLLECTION METHOD CLEAN CATCH
[2021-07-06 02:29] LABS: BASO % 0.3 % (0.0-2.0); GRAN # 5.4 K/mm3 (1.4-6.5); GRAN % 71.7 % (42.2-75.2); HEMOGLOBIN 11.9 g/dl (12.5-16.0); LYMPH # 1.4 K/mm3 (1.2-3.4); LYMPH % 18.6 % (20.0-51.0); MEAN CELL VOLUME 96 fl (80.0-100.0); MEAN CORPUSCULAR HEMOGLOBIN 33 pg (27-31); MEAN CORPUSCULAR HGB CONC 34 g/dl (33.0-37.0); MEAN PLATELET VOLUME 10.3 fl (7.4-10.4); MONO # 0.7 K/mm3 (0.1-0.6); MONO % 9.3 % (1.7-9.3); PLATELET COUNT 279 K/mm3 (130-400); RED BLOOD COUNT 3.63 M/mm3 (4.10-5.30)
[2021-07-06 02:31] LABS: MUCOUS Present (NOT PRESENT); PH 5 (5-8); URINE APPEARANCE Cloudy (CLEAR/HAZY); URINE BACTERIA Moderate /hpf (NONE SEEN); URINE BILIRUBIN Negative (NEGATIVE); URINE BLOOD Negative (NEGATIVE); URINE COLOR Amber (YELLOW); URINE GLUCOSE Negative (NEGATIVE); URINE KETONE Negative (NEGATIVE); URINE LEUKOCYTE ESTERASE 1+ (NEGATIVE); URINE NITRATE Positive (NEGATIVE); URINE PROTEIN(semi-quant) Negative (NEGATIVE); URINE RBC 0-2 /hpf (0-2)
[2021-07-06 02:40] LABS: HEMATOCRIT 34.9 % (37.0-47.0); TRICYCLIC ANTIDEPRESS URINE NEGATIVE
[2021-07-06 02:51] LABS: ALBUMIN 4.6 gm/dL (3.5-5.0); BILIRUBIN,TOTAL 0.9 mg/dL (0.2-1.2); CALCIUM 9.5 mg/dL (8.4-10.2); CREATININE, serum 0.99 mg/dL (0.57-1.11); POTASSIUM 3.7 mmol/L (3.5-4.5)
[2021-07-06] MEDS ORDERED: CEPHALEXIN500 M1 PO (03:16)
== END 2021-07-06 03:24 | disposition home or self-care (01) ==
LOC: COL.ER 01:35
PROVIDERS: Student in an Organized Health Care Education/Training Program
DX: N39.0 Urinary tract infection, site not specified (principal); F15.10 Other stimulant abuse, uncomplicated; Z87.891 Personal history of nicotine dependence; Z88.2 Allergy status to sulfonamides; Z32.02 Encounter for pregnancy test, result negative; Z28.310 Unvaccinated for COVID-19

== ENCOUNTER 2021-07-08 15:48 | Emergency (ER) | payer MEDICAID ==
[~2021-07-08] VITALS: Ht 165.1 cm; Wt 59.1 kg
[2021-07-08 16:16] VITALS: BP 137/80; PULSE 85; TEMP 98
[2021-07-08 18:41] LABS: COLLECTION METHOD CLEAN CATCH
[2021-07-08 18:45] LABS: BASO % 0.4 % (0.0-2.0); EOS % 0.1 % (0.0-4.0); GRAN # 4.3 K/mm3 (1.4-6.5); GRAN % 62.3 % (42.2-75.2); HEMOGLOBIN 12.5 g/dl (12.5-16.0); LYMPH # 1.9 K/mm3 (1.2-3.4); LYMPH % 27.3 % (20.0-51.0); MEAN CELL VOLUME 96 fl (80.0-100.0); MEAN CORPUSCULAR HEMOGLOBIN 33 pg (27-31); MEAN CORPUSCULAR HGB CONC 34 g/dl (33.0-37.0); MEAN PLATELET VOLUME 10.3 fl (7.4-10.4); MONO # 0.7 K/mm3 (0.1-0.6); MONO % 9.8 % (1.7-9.3); PLATELET COUNT 244 K/mm3 (130-400); RED BLOOD COUNT 3.83 M/mm3 (4.10-5.30); REDCELL DISTRIBUTION WIDTH-CV 12.5 % (11.5-14.5)
[2021-07-08 18:49] LABS: HEMATOCRIT 36.7 % (37.0-47.0)
[2021-07-08 18:50] LABS: PH 6 (5-8); SQUAMOUS EPITHELIAL 0-2 /hpf (0-10); URINE APPEARANCE Clear (CLEAR/HAZY); URINE BACTERIA Moderate /hpf (NONE SEEN); URINE BILIRUBIN Negative (NEGATIVE); URINE BLOOD Negative (NEGATIVE); URINE COLOR Yellow (YELLOW); URINE GLUCOSE Negative (NEGATIVE); URINE KETONE Negative (NEGATIVE); URINE LEUKOCYTE ESTERASE Negative (NEGATIVE); URINE NITRATE Negative (NEGATIVE); URINE PROTEIN(semi-quant) Negative (NEGATIVE); URINE RBC 0-2 /hpf (0-2)
[2021-07-08 19:00] LABS: TRICYCLIC ANTIDEPRESS URINE NEGATIVE
[2021-07-08 19:03] LABS: ALANINE AMINOTRANSFERASE 127 U/L (0-55); ALBUMIN 4.5 gm/dL (3.5-5.0); ALKALINE PHOSPHATASE 71 U/L (40-150); ANION GAP 12 mmol/L (7-16); AST,SGOT 87 U/L (5-34); BILIRUBIN,TOTAL 0.7 mg/dL (0.2-1.2); BLOOD UREA NITROGEN 20 mg/dL (10-20); CALCIUM 9.5 mg/dL (8.4-10.2); CARBON DIOXIDE 22 mmol/L (22-29); CHLORIDE 105 mmol/L (98-107); CREATININE, serum 0.98 mg/dL (0.57-1.11); GLUCOSE 92 mg/dL (70-99); POTASSIUM 3.6 mmol/L (3.5-4.5); SODIUM 139 mmol/L (136-145)
[2021-07-08 19:12] LABS: ACETAMINOPHEN < 1.0 ug/mL (10-30); ALCOHOL(ethanol),MEDICAL < 10 mg/dL (0-10); SALICYLATE < 5.0 mg/dL (15.0-30.0)
== END 2021-07-08 19:53 | disposition home or self-care (01) ==
LOC: COL.ER 15:48
PROVIDERS: Nurse Practitioner Primary Care
DX: F41.9 Anxiety disorder, unspecified (principal); F32.A Depression, unspecified; F17.290 Nicotine dependence, other tobacco product, uncomplicated; Z28.310 Unvaccinated for COVID-19

== ENCOUNTER 2021-10-17 14:00 | Emergency (ER) | payer MEDICAID ==
[~2021-10-17] VITALS: Ht 165.1 cm; Wt 59.1 kg
[2021-10-17 14:03] VITALS: TEMP 97.7
[2021-10-17 14:43] LABS: BASO % 0.3 % (0.0-2.0); EOS % 0.1 % (0.0-4.0); GRAN # 7.7 K/mm3 (1.4-6.5); GRAN % 82.7 % (42.2-75.2); HEMOGLOBIN 13.6 g/dl (12.5-16.0); LYMPH # 1.1 K/mm3 (1.2-3.4); MEAN CELL VOLUME 91 fl (80.0-100.0); MEAN CORPUSCULAR HEMOGLOBIN 30 pg (27-31); MEAN CORPUSCULAR HGB CONC 33 g/dl (33.0-37.0); MONO # 0.4 K/mm3 (0.1-0.6); MONO % 4.7 % (1.7-9.3); PLATELET COUNT 274 K/mm3 (130-400); RED BLOOD COUNT 4.49 M/mm3 (4.10-5.30); REDCELL DISTRIBUTION WIDTH-CV 13.3 % (11.5-14.5)
[2021-10-17 15:01] LABS: BILIRUBIN,TOTAL 0.7 mg/dL (0.2-1.2); CALCIUM 9.9 mg/dL (8.4-10.2); CREATININE, serum 0.95 mg/dL (0.57-1.11); POTASSIUM 4.7 mmol/L (3.5-4.5); TOTAL PROTEIN 8.6 gm/dL (6.2-8.1)
[2021-10-17 15:47] LABS: COLLECTION METHOD CLEAN CATCH
[2021-10-17 16:04] LABS: PH 6.5 (5.0-8.5); URINE APPEARANCE Turbid (CLEAR/HAZY); URINE BLOOD Negative (NEGATIVE); URINE COLOR Yellow (YELLOW); URINE GLUCOSE Negative (NEGATIVE); URINE KETONE Negative (NEGATIVE); URINE NITRATE Negative (NEGATIVE); URINE PROTEIN(semi-quant) Negative (NEGATIVE)
[2021-10-17 16:06] LABS: MUCOUS Present (NOT PRESENT); URINE BACTERIA None Seen /hpf (NONE SEEN)
[2021-10-17 17:21] VITALS: BP 127/79; PULSE 86
== END 2021-10-17 17:22 | disposition home or self-care (01) ==
LOC: COL.ER 14:00 → MEDICAL 15:50 → COL.ER 15:50
PROVIDERS: Physician Assistant
DX: R10.32 Left lower quadrant pain (principal); Z32.02 Encounter for pregnancy test, result negative; Z28.310 Unvaccinated for COVID-19
CPT/HCPCS: J1790

== ENCOUNTER 2022-09-29 15:00 | Outpatient (RCR) | payer MEDICAID ==
[2022-09-22 16:00] VITALS: BP 112/73; PULSE 72; TEMP 98.4
[~2022-09-29] VITALS: Ht 165.1 cm; Wt 61.7 kg
[~2022-09-29 15:00] MED LIST changes: +LEVAQUIN 5500 MG/TA1 PO; +ZOFRAN ODT4 MG PO
[2022-09-29 15:17] VITALS: BP 101/69; PULSE 76; TEMP 98.5
== END 2022-10-22 | disposition home or self-care (01) ==
LOC: EUO
DX: D50.9 Iron deficiency anemia, unspecified (principal); E53.8 Deficiency of other specified B group vitamins
CPT/HCPCS: J1756; J3420

== ENCOUNTER 2023-06-22 11:26 | Outpatient (RCR) | payer MEDICAID ==
[~2023-06-22] VITALS: Ht 165.1 cm; Wt 57.3 kg
[~2023-06-22 11:26] MED LIST changes: +PROTONIX 40MG T40 MG PO
[2023-06-22 11:35] VITALS: BP 122/67; PULSE 78; TEMP 98.4
[2023-06-22] MEDS ORDERED: PROTONIX 40MG T40 MG PO (11:38)
[2023-06-22] MEDS ORDERED: VANTIN 200200 MG/TAB PO (11:39)
[2023-06-22] MEDS ORDERED: CYANOCOBAL1000 MCG/M IM (11:40)
--- NOTE | 2023-06-22 11:55 | NUR ---
Pt tolerated injection without issue. She exits dept with steady gait.
== END 2023-06-22 11:55 | disposition home or self-care (01) ==
LOC: EUO 11:26
DX: E53.8 Deficiency of other specified B group vitamins (principal)
CPT/HCPCS: J3420